=== PATIENT | female | born 1950 | race Caucasian/White ===

== ENCOUNTER 2019-05-28 09:00 | Day surgery (SDC) | payer BC ==
[2019-05-23 10:29] VITALS: BMI 21.4
[2019-05-28] MEDS ORDERED: PROPOFOL 20 ML ONE ×2 (10:25)
[2019-05-28] MEDS ORDERED: LIDOCAINE HCL/PF 2% SDV 5ML VIAL ONE (10:25)
[2019-05-28 11:37] VITALS: TEMP 97.5
[2019-05-28 11:42] VITALS: BP 140/71; PULSE 68
--- NOTE | 2019-05-30 17:51 | PATH ---
Surgical Pathology Report Patient Name: PABLO HEATH [facility]. Rec. #: [id number] /Age/Gender: 1950 (Age: 68) / F Account: [id number] Location: [facility] Taken: 05/28/2019 Received: 05/28/2019 Reported: 05/30/2019 Physicians: Jaquelin Giron M.D. Specimen(s) Received POLYP APENDICEAL ORIFICE Clinical History Screening Postoperative diagnosis: polyp, diverticulosis, internal hemorrhoids Final Diagnosis POLYP, APPENDICEAL ORIFICE, BIOPSY: POLYPOID COLONIC MUCOSA WITH FOCAL ACTIVE COLITIS AND PROMINENT LYMPHOID AGGREGATES. SEE COMMENT. Comment: Findings are non-specific. Differential diagnoses include: acute self-limited colitis, infection, medication, bowel preparation artifact, and early in inflammatory bowel disease. Suggest clinical/endoscopic correlation. Electronically Signed Jaquelin Hussein M.D. Gross Description Received in formalin, labeled "polyp appendiceal orifice" are 3 gil, irregular portions of soft tissue measuring 0.1-0.3 cm. in greatest dimension. The specimens are submitted in toto in one cassette. MLSZ/05/29/2019 sanml/05/29/2019
== END 2019-05-28 11:40 | disposition home or self-care (01) ==
LOC: FASU 09:00
PROVIDERS: ATTEND Internal Medicine Gastroenterology
PROC: 0DBH8ZX Excision of Cecum, Via Natural or Artificial Opening Endoscopic, Diagnostic (ICD-10-PCS; principal; 2019-05-28 10:27)
DX: Z12.11 Encounter for screening for malignant neoplasm of colon (principal); K57.30 Diverticulosis of large intestine without perforation or abscess without bleeding; K63.89 Other specified diseases of intestine; K64.0 First degree hemorrhoids
CPT/HCPCS: 88305-TC